=== PATIENT | female | born 1995 | race African-American/Black ===

== ENCOUNTER 2016-04-21 15:30 | Emergency (ER) | payer OTHER ==
[2016-04-21 15:56] LABS: ASCORBIC ACID (UR NOT ORDER) NEG (NEG); BILIRUBIN, URINE NEGATIVE (NEG); ER URINALYSIS TAT 0 Hrs 10 Mins; KETONE, URINE NEGATIVE (NEG); LEUKOCYTE ESTERASE(NOT OR MOD (NEG); NITRITE (URINE) NEG (NEG); WBC (NOT ORDERED) (RFLEX) 32 (0-5)
== END 2016-04-21 18:41 | disposition home or self-care (01) ==
LOC: ER 15:30
PROVIDERS: Nurse Practitioner
DX: O23.40 Unspecified infection of urinary tract in pregnancy, unspecified trimester (principal); O99.89 Other specified diseases and conditions complicating pregnancy, childbirth and the puerperium; M79.652 Pain in left thigh; Y08.89XA Assault by other specified means, initial encounter
CPT/HCPCS: 81001; 84703; 87077; 87086; 87186; 99284; A9270-GY